=== PATIENT | female | born 1950 | race Hispanic/Latino ===

== ENCOUNTER 2017-03-16 08:46 | Day surgery (SDC) | payer MEDICARE ==
[2017-03-08 12:06] VITALS: BMI 27.6
[2017-03-16] MEDS ORDERED: Propofol 10 mg/ml Inj (20 ML) ONE ×2 (10:22→10:45)
[2017-03-16] MEDS ORDERED: Sodium Chloride 0.9% 1,000 ML IV SCH (11:00)
[2017-03-16 16:23] VITALS: BP 131/88; PULSE 62; RESP 15; TEMP 98; O2SAT 97
== END 2017-03-16 12:49 | disposition home or self-care (01) ==
LOC: ENDO 08:46
PROVIDERS: ATTEND Internal Medicine Gastroenterology
DX: K22.70 Barrett's esophagus without dysplasia (principal); K44.9 Diaphragmatic hernia without obstruction or gangrene; K29.50 Unspecified chronic gastritis without bleeding
CPT/HCPCS: 43239; 88305; 88312; J2001; J2704; J3010; J7030; J7040